=== PATIENT | female | born 1975 | race Asian ===

== ENCOUNTER 2017-06-24 21:09 | Emergency (ER) | payer OTHER ==
[2017-06-24 21:15] VITALS: BP 114/71; PULSE 77; BMI 27.3
--- NOTE | 2017-06-24 21:19 | PDOC ---
Attending Attestation - Resident Resident Name: Maureen Weiner - ED Attending Attestation I have performed the following: I have examined & evaluated the patient, The case was reviewed & discussed with the resident, I agree w/resident's findings & plan, Exceptions are as noted - HPI HPI: 06/24/17 21:31 41 yo female BIBA for vaginal bleeding. Paramedics report that this pt had a pelvic US last week that showed a 5 week but no heart tones .Pt has not been to this ER before - Physicial Exam PE: 06/24/17 22:31 wnwd 41 yo female p/w pelvic cramping and scant 06/24/17 23:29 lungs cta b/l pelvic exam -pt did not want a pelvic exam abd no rebound,no guarding neuro axox3,ambulatory 06/24/17 23:31 - Medical Decision Making 06/25/17 00:22 ultrasound revealed miscarriage bhcg about 8000
--- NOTE | 2017-06-24 21:47 | PDOC ---
History of Present Illness - General Chief Complaint: Vaginal Bleeding Stated Complaint: 6 WEEKS , BLEEDING Time Seen by Provider: 06/24/17 21:16 History Source: Patient Exam Limitations: No Limitations - History of Present Illness Initial Comments: This is a 41 YOF who is (three prior miscarriages and one ectopic which was surgically removed) who p/w vaginal bleeding and suprapubic cramping for the past three days. 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 She has had mild lower abdominal cramping over the past few hours which is relieved whenever she passes a clot. She notes mild chills and mild lightheadedness, but denies any fever, nausea, vomiting, diarrhea, constipation, headache, chest pain, shortness of breath, vision changes, numbness, tingling, focal weakness, or other symptoms. Her last menstrual period was 04/20/17 and she had a positive test at home about 6 weeks later, prompting an outpatient visit in which she had positive blood and urine tests, but also had a sonogram that did not show heart beat. She again followed up with her outpatient provider in the past few weeks, and they were again unable to identify a heart beat. Past History - Past Medical History Allergies/Adverse Reactions: Allergies Allergy/AdvReac Type Severity Reaction Status Date / Time No Known Allergies Allergy Verified 06/24/17 21:14 Home Medications: Ambulatory Orders NK [No Known Home Medication] 06/24/17 COPD: No Thyroid Disease: Yes - Suicide/Smoking/Psychosocial Hx Smoking History: Unknown if ever smoked Review of Systems - Review of Systems Able to Perform ROS?: Yes Constitutional: Yes: Chills (mild). No: Fever, Unexplained wgt Loss HEENTM: No: Nose Congestion, Throat Pain Respiratory: No: Cough, Shortness of Breath Cardiac (ROS): No: Chest Pain, Palpitations ABD/GI: Yes: Other (lower abdominal cramping). No: Constipated, Diarrhea, Nausea, Vomiting : Yes: Other (vaginal bleeding with clots). No: Burning, Dysuria Musculoskeletal: No: Back Pain, Neck Pain Integumentary: No: Bruising, Rash Neurological: No: Headache, Numbness, Tingling, Weakness, Dizziness Endocrine: No: Unexplained Weight Gain, Unexplained Weight Loss *Physical Exam - Vital Signs Last Vital Signs Temp Pulse Resp BP Pulse Ox 77 18 114/71 98 06/24/17 21:14 06/24/17 21:14 06/24/17 21:14 06/24/17 21:14 - Physical Exam General Appearance: Yes: Nourished, Appropriately Dressed, Other (pleasant and alert/oriented ). No: Apparent Distress HEENT: positive: EOMI, Normal Voice, Hearing Grossly Normal. negative: Scleral Icterus (R), Scleral Icterus (L), Nasal Congestion Neck: positive: Trachea midline, Supple. negative: Tender, Rigid Respiratory/Chest: positive: Lungs Clear, Normal Breath Sounds. negative: Respiratory Distress, Crackles, Rhonchi, Stridor, Wheezing Cardiovascular: positive: Regular Rhythm, Regular Rate. negative: Murmur Gastrointestinal/Abdominal: positive: Normal Bowel Sounds, Tender (mild ttp suprapubic region), Soft. negative: Organomegaly, Pulsatile Mass, Guarding, Rebound Musculoskeletal: positive: Normal Inspection. negative: Decreased Range of Motion, Vertebral Tenderness Extremity: positive: Normal Capillary Refill, Normal Inspection, Normal Range of Motion. negative: Tender, Cyanosis Integumentary: positive: Normal Color, Dry, Warm. 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 Initial Vital Signs Pulse Resp BP Pulse Ox 77 18 114/71 98 06/24/17 21:14 06/24/17 21:14 06/24/17 21:14 06/24/17 21:14 Exam: alert, oriented, no distress, mild suprapubic ttp without peritoneal signs. DDX IBNLT: threatened/inevitable/incomplete/complete/septic , ectopic, PID/TOA/cervicitis, endometritis, ruptured ovarian cyst, ovarian torsion, malignancy, menorrhagia, endometriosis, rectal bleed, hematuria, constipation, fibroids, etc. Ordered is CBCD CMP T&S UA UCx hCG Quant US early OB. Unlikely septic as no uterine ttp, no f/c. Unlikely ectopic at patient denies known , no prior procedure or infection. Unlikely PID/TOA/cervicitis as patient denies h/o STIs, no report of abnormal discharge. Unlikely endometritis as patient denies recent procedures or abnormal discharge , no f/c. Unlikely ovarian cyst as patient denies h/o ovarian cysts, unlikely hemorrhagic as pt denies sxs of anemia. Unlikely ovarian torsion as patient has no significant ttp. Unlikely UTI/pyelonephritis as patient has no dysuria, strange colors/smells, no h/o recurrent UTI. Unlikely malignancy as patient has no palpable mass, no reported recent B symptoms. Laboratory Tests 06/24/17 06/24/17 06/24/17 22:25 22:25 22:25 WBC 6.3 RBC 3.96 Hgb 12.3 Hct 35.0 MCV 88.4 MCH 31.0 MCHC 35.1 RDW 13.8 Plt Count 280 MPV 8.6 Neutrophils % 53.3 Lymphocytes % 36.8 Monocytes % 7.9 Eosinophils % 1.3 Basophils % 0.7 Sodium 141 Potassium 3.8 Chloride 108 H Carbon Dioxide 25 Anion Gap 8 BUN 14 Creatinine 0.5 L Creat Clearance w eGFR > 60 Random Glucose 96 Calcium 8.7 Total Bilirubin 0.2 AST 17 ALT 18 Alkaline Phosphatase 69 Total Protein 7.4 Albumin 3.9 Beta HCG, Quant 8330.3 Urine Color Urine Appearance Urine pH Ur Specific [place] Urine Protein Urine Glucose (UA) Urine Ketones Urine Blood Urine Nitrite Urine Bilirubin Urine Urobilinogen Ur Leukocyte Esterase Urine WBC (Auto) Urine RBC (Auto) Ur Epithelial Cells Blood Type Antibody Screen 06/24/17 06/24/17 22:25 23:13 WBC RBC Hgb Hct MCV MCH MCHC RDW Plt Count MPV Neutrophils % Lymphocytes % Monocytes % Eosinophils % Basophils % Sodium Potassium Chloride Carbon Dioxide Anion Gap BUN Creatinine Creat Clearance w eGFR Random Glucose Calcium Total Bilirubin AST ALT Alkaline Phosphatase Total Protein Albumin Beta HCG, Quant Urine Color Red Urine Appearance Slcloudy Urine pH 6.0 Ur Specific [place] 1.021 Urine Protein 2+ H Urine Glucose (UA) Negative Urine Ketones Negative Urine Blood 3+ H Urine Nitrite Negative Urine Bilirubin Negative Urine Urobilinogen Negative Ur Leukocyte Esterase Negative Urine WBC (Auto) 202 Urine RBC (Auto) 392 Ur Epithelial Cells Few Blood Type O POSITIVE Antibody Screen Negative Blood type is: O+ US: Suspected demise at 6 wks gestation. Reassessment: repeat exam benign, patient comfortable going home. Repeat VS: wnl The patient is offered misoprostol to aid the passage of products of conception. They are counseled on the risks and benefits, they understand, and are aware this is optional. The patient does not require Rhogam. Workup is not concerning for emergency-level pathology at this time. The patient is appropriate for discharge home w/ close outpatient f/u. 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 She will take primarily Tylenol for pain. Return precautions are discussed and they will come back to the ER if necessary. *DC/Admit/Observation/Transfer Diagnosis at time of Disposition: Miscarriage - Discharge Dispostion Disposition: HOME Condition at time of disposition: Stable Decision to Admit order: No - Referrals - Patient Instructions Printed Discharge Instructions: DI for Miscarriage Additional Instructions: You were seen in the ER for vaginal bleeding in . We did an exam, laboratory work on your blood and urine, and an ultrasound. You are having a miscarriage and you should expect to pass more clots. After our assessment, we believe you are having a miscarriage but we do not think you are having a medical emergency at this time, and you are safe to go home. Please take Tylenol for any mild-moderate pain. 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 Call their clinic [facility], tell them you were seen in the ER, and tell them you need an appointment. Please come back to the ER at any time (24 hours a day) for any new or worsening symptoms, like worsening pelvic pain, discharge, high fever, headache, seizure, fainting, anemia, large amount of blood loss, or other symptoms. If you are having severe or life threatening symptoms, or symptoms that make it unsafe to drive or have someone drive you, please call 911. Print Language: AMHARIC - Post Discharge Activity
[2017-06-24] MEDS ORDERED: ACETAMINOPHEN 1000 MG/100 ML VIAL (NON FORMULARY) IVPB ONE (21:54)
[2017-06-24] MEDS ORDERED: SODIUM CHLORIDE 0.9% 500 ML INFUS.BAG IV ONE (21:54)
[2017-06-24] MEDS ORDERED: ACETAMINOPHEN INJECTION 100 ML IVPB ONE (22:28)
[2017-06-24 22:33] LABS: BASO % 0.7 % (0-2.0); EOS % 1.3 % (0-4.5); HEMOGLOBIN 12.3 GM/dL (10.7-15.3); LYMPH % 36.8 % (8-40); MCHC 35.1 g/dl (32.0-36.0); MEAN CELL VOLUME 88.4 fl (80-96); MEAN PLT VOLUME 8.6 fl (7.5-11.1); MONO % 7.9 % (3.8-10.2); NEUT % 53.3 % (42.8-82.8); PLATELET COUNT 280 K/MM3 (134-434); RBC 3.96 M/mm3 (3.60-5.2); RDW 13.8 % (11.6-15.6); WHITE BLOOD COUNT 6.3 K/mm3 (4.0-10.0)
[2017-06-24 23:14] LABS: ALBUMIN 3.9 g/dl (3.4-5.0); ALK PHOS 69 U/L (45-117); ANION GAP 8 (8-16); BILIRUBIN,TOTAL 0.2 mg/dL (0.2-1.0); BLOOD UREA NITROGEN 14 mg/dL (7-18); CALCIUM 8.7 mg/dL (8.5-10.1); CHLORIDE 108 mmol/L (98-107); CO2 25 mmol/L (21-32); CREATININE 0.5 mg/dL (0.55-1.02); GLUCOSE,RANDOM 96 mg/dL (74-106); POTASSIUM 3.8 mmol/L (3.5-5.1); SGOT/AST 17 U/L (15-37); SGPT/ALT 18 U/L (12-78); SODIUM 141 mmol/L (136-145); TOT PROT 7.4 g/dl (6.4-8.2)
[2017-06-24 23:22] LABS: URINE APPEARANCE SLCLOUDY; URINE BILIRUBIN NEGATIVE (<2.0 mg/dL); URINE BLOOD 3+ (NEGATIVE); URINE COLOR RED; URINE GLUCOSE (UA) NEGATIVE (NEGATIVE); URINE KETONE NEGATIVE (NEGATIVE); URINE LEUK ESTERASE NEGATIVE (NEGATIVE); URINE NITRITE NEGATIVE (NEGATIVE); URINE UROBILINOGEN NEGATIVE mg/dL (0.2-1.0)
[2017-06-24 23:31] LABS: URINE PROTEIN 2+ (NEGATIVE)
[2017-06-24 23:32] LABS: EPI CELLS FEW /HPF (FEW)
== END 2017-06-24 23:48 | disposition home or self-care (01) ==
LOC: JER 21:09
PROC: 3E033NZ Introduction of Analgesics, Hypnotics, Sedatives into Peripheral Vein, Percutaneous Approach (ICD-10-PCS; principal; 2017-06-24)
DX: O26.891 Other specified pregnancy related conditions, first trimester (principal); O02.1 Missed abortion; Z3A.01 Less than 8 weeks gestation of pregnancy
CPT/HCPCS: 36415; 76817-TC; 80053; 81003; 81015; 84702; 85025; 86850; 86900; 86901; 87086; 96374; 99282-25; J0131